=== PATIENT | male | born 1960 | race African-American/Black ===

== ENCOUNTER 2016-08-22 12:56 | Emergency (ER) | payer SELFPAY ==
[2016-08-22] MEDS ORDERED: Tetracaine HCl 0.5% Ophth Soln 2 ML Bottle ONE (13:02)
[2016-08-22] MEDS ORDERED: Fluorescein Opthalmic Strip ONE (13:02)
[2016-08-22] MEDS ORDERED: Ibuprofen 200 MG TAB ONE (13:06)
[2016-08-22] MEDS ORDERED: traMADol HCl 50 MG TAB ONE (13:06)
[2016-08-22] MEDS ORDERED: Adacel (T-DAP) 0.5 ML VIAL ONE (13:06)
[2016-08-22] MEDS ORDERED: Ciprofloxacin 0.3% Ophth Drops 2.5 ml Bottle ONE (13:56)
--- NOTE | 2016-08-22 15:17 | RAD ---
RIGHT HAND HISTORY: Injury to right hand. TECHNIQUE: Three views obtained. FINDINGS: There is a comminuted fracture involving the distal second metacarpal. There is slight displacement and angulation of the major distal fragment. There is mild volar angulation of the major distal fr agments. Deformity of the fourth and fifth metacarpals is seen from old healed fractures. There are degenera tive changes at the carpometacarpal joints and degenerative changes involving the IP joints, particu larly involving the DIP joints, where there are prominent dorsal osteophytes present. IMPRESSION: Comminuted fracture, distal second metacarpal. Chronic findings as described above. POS: [facility]
== END 2016-08-22 14:05 ==
LOC: NAV ERS 12:56
DX: S62.330A Displaced fracture of neck of second metacarpal bone, right hand, initial encounter for closed fracture (principal); S05.31XA Ocular laceration without prolapse or loss of intraocular tissue, right eye, initial encounter; S05.01XA Injury of conjunctiva and corneal abrasion without foreign body, right eye, initial encounter; E78.5 Hyperlipidemia, unspecified; I11.0 Hypertensive heart disease with heart failure; I50.9 Heart failure, unspecified; Y04.0XXA Assault by unarmed brawl or fight, initial encounter
CPT/HCPCS: 29125; 90471; 90715

== ENCOUNTER 2017-12-05 12:10 | Emergency (ER) | payer SELFPAY ==
[2017-12-05] MEDS ORDERED: Furosemide 40 MG/4 ML VIAL ONE ×2 (12:31→12:35)
[2017-12-05 12:55] LABS: #Basophils 0.1 thou/uL (0.0-0.2); #Eosinphils 0.1 thou/uL (0.0-0.7); #Lymphocytes 1.9 thou/uL (1.20-3.40); #Monocytes 0.6 thou/uL (0.11-0.59); #Neutrophils 2.5 thou/uL (1.40-6.50); %Basophils 2.1 % (0.0-1.0); %Eosinophils 1.1 % (0.0-10.0); %Lymphocytes 36.7 % (21.0-51.0); %Monocytes 11.8 % (0.0-10.0); %Neutrophils 48.4 % (42.0-75.0); Hemoglobin 14.3 g/dL (14.0-18.0); Mean Corpuscular HGB CONC 33.4 g/dL (32.0-36.0); Mean Corpuscular Hemoglobin 30.2 pg (27.0-31.0); Mean Corpuscular Volume 90.5 fL (78.0-98.0); Mean Platelet Volume 8.6 fL (7.4-10.4); Platelet Count 285 thou/uL (130-400); RBC Distribution Width 12.4 % (11.5-14.5); Red Blood Cell (RBC) Count 4.73 mill/uL (4.70-6.10); White Blood Cell (WBC) Count 5.2 thou/uL (4.8-10.8)
[2017-12-05 13:11] LABS: ALT (SGPT) 33 U/L (8-55); AST (SGOT) 24 U/L (5-34); Albumin 3.9 g/dL (3.5-5.0); Alkaline Phosphatase 84 U/L (40-150); Anion Gap 16 mmol/L (10-20); BUN (Urea Nitrogen) 19 mg/dL (8.4-25.7); Bilirubin, Total 0.8 mg/dL (0.2-1.2); CK (CPK) 151 U/L (30-200); Calc. Creatinine Clearance 0 mL/min (70-130); Calcium 9.7 mg/dL (7.8-10.44); Carbon Dioxide 21 mmol/L (22-29); Chloride 110 mmol/L (98-107); Estimated GFR-MDRD 78; Globulin 2.8 g/dL (2.4-3.5); Glucose 89 mg/dL (70-105); Potassium 4.8 mmol/L (3.5-5.1); Protein, Total 6.7 g/dL (6.0-8.3); Sodium 142 mmol/L (136-145)
[2017-12-05 13:13] LABS: CKMB 1.3 ng/mL (0-6.6); Troponin I 0.018 ng/mL (< 0.028)
--- NOTE | 2017-12-05 13:55 | RAD ---
SEMIUPRIGHT PORTABLE CHEST 1 VIEW: Date: 12/05/17 HISTORY: 57-year-old male with history of dyspnea. COMPARISON: 03/07/17. FINDINGS: Cardiomegaly with some bilateral vascular congestion, which is more marked than on the prior study. T here is an irregularly shaped opacity overlying the right lower chest, possibly artifactual. No focal confluent pneumonia. IMPRESSION: Mild cardiomegaly with bilateral vascular congestion and possibly some mild perihilar interstitial ed leander change. This certainly could represent some degree of congestive heart failure. Short-term follow -up to include PA and lateral chest suggested. POS: [facility]
== END 2017-12-05 15:50 | disposition short-term general hospital (02) ==
LOC: NAV ERS 12:10
DX: I11.0 Hypertensive heart disease with heart failure (principal); I50.9 Heart failure, unspecified; E78.5 Hyperlipidemia, unspecified; Z79.899 Other long term (current) drug therapy
CPT/HCPCS: 71045; 80053; 82553; 83880; 84484; 85025; 93005; 96374; J1940